=== PATIENT | female | born 1990 | race Caucasian/White ===

== ENCOUNTER 2017-06-10 10:14 | Emergency (ER) | payer BC, OTHER ==
[~2017-06-10] VITALS: Ht 162.6 cm; Wt 61.2 kg
[~2017-06-10 10:14] MED LIST: ACHYD1T PO; DOCU100C37 PO; IBP800T PO; IBUP-1780 PO; NITR100C3 PO; OXYC-465 PO; PREN1TAB14 PO
--- NOTE | 2017-06-10 10:44 | ED Psychosocial ---
General Stated Complaint: PSYCH EVAL Source: patient Exam Limitations: no limitations History of Present Illness Date Seen by Provider: Jun 10, 2017 Time Seen by Provider: 10:39 Initial Comments To ER per private vehicle accompanied by her mother with reports of unwanted thoughts. She states this is been going on for about a year. She states that she has 2 children at home and she feels. She occasionally has thoughts of hurting her children or herself from hurting her children though she has never acted on this. She states "I feel like I have to keep everything sharp or harmful locked up". She reports she did post depression after of her 2 year old child. Her marine consultant Dr Michel started her on prozac at that time but she didnt notice any improvement so she stopped it. ABout a week ago things became worse so she restarted some leftover prozac and it seemed to make things far worse as far as the frequency of these thoughts. She states that she has no personal history of mental illness but her father was diagnosed as bipolar and committed suicide about 4 days after starting Prozac many years ago. Timing/Duration: constant, getting worse Severity: moderate Allergies and Home Medications Allergies Coded Allergies: Sulfa (Sulfonamide Antibiotics) (Unverified Allergy, Severe, ANAPHYLACTIC , 10/31/12) Penicillins (Unverified Allergy, Mild, RASH, 10/31/12) Home Medications Docusate Sodium 100 Mg Capsule, 100 MG PO BID Prescribed by: HARLEY HADDAD on 01/19/15 0745 Hydrocodone Bit/Acetaminophen 1 Tab Tablet, 1-2 TAB PO q3HR PRN, (Reported) Ibuprofen 800 Mg Tab, 800 MG PO Q6 PRN, (Reported) Ibuprofen 800 Mg Tablet, 800 MG PO Q6H Prescribed by: HARLEY HADDAD on 01/19/15 0745 Oxycodone HCl/Acetaminophen 1 Each Tablet, 1-2 TAB PO Q4H PRN for PAIN Prescribed by: HARLEY HADDAD on 01/19/15 0745 Vits W-Ca,Fe,Fa(<1MG) 1 Each Tablet, 1 EACH PO DAILY, (Reported) Venlafaxine HCl 37.5 Mg Cap.er.24h, 37.5 MG PO DAILY Prescribed by: FELECIA MATTHEWS on 06/10/17 1663 Patient Home Medication List Home Medication List Reviewed: Yes Constitutional: see HPI EENTM: see HPI Respiratory: no symptoms reported Cardiovascular: no symptoms reported Genitourinary: no symptoms reported Musculoskeletal: no symptoms reported Skin: no symptoms reported Psychiatric/Neurological: See HPI, Anxiety Past [place]-Wkrigx-Znyrhx Hx Patient Social History Recent Foreign Travel: No Contact w/Someone Who Travel: No Immunizations Up To Date Tetanus Booster (TDap): Unknown PED Vaccines UTD: No Reproductive System Hx Reproductive Disorders: No Blood Transfusions Adverse Reaction to a Blood Tr: No Family Medical History Significant Family History: No Pertinent Family Hx Family Medial History: Cardiovascular disease grandparents (maternal and paternal) Diabetes mellitus grandparents (maternal and paternal) FH: lymphoma grandparents (maternal grandmother) FH: ovarian cancer grandparents (maternal grandmother) Physical Exam Vital Signs Vital Signs - First Documented 06/10/17 06/10/17 10:30 15:22 Temp 98.6 Pulse 97 Resp 18 B/P (MAP) 153/96 (115) Pulse Ox 98 O2 Delivery Room Air Capillary Refill : General Appearance: WD/WN, no apparent distress HEENT: PERRL/EOMI, normal ENT inspection Neck: non-tender, full range of motion Respiratory: no respiratory distress, no accessory muscle use Cardiovascular: regular rate, rhythm, no murmur Gastrointestinal: normal bowel sounds, non tender Neurologic/Psychiatric: alert, normal mood/affect, oriented x 3 Appearance/Memory: appropriate appearance, appropriate insight, other (sobbing) Behavior/Eye Contact: cooperative, good eye contact Thoughts/Hallucinations: normal thought pattern, no apparent hallucination Skin: normal color, warm/dry Progress/Results/Core Measures Results/Orders Lab Results Laboratory Tests Test 06/10/17 10:48 06/10/17 10:53 Range/Units Urine Color YELLOW Urine Clarity CLEAR Urine pH 6 5-9 Urine Specific [place] 1.020 1.016-1.022 Urine Protein 1+ H NEGATIVE Urine Glucose (UA) NEGATIVE NEGATIVE Urine Ketones 4+ H NEGATIVE Urine Nitrite NEGATIVE NEGATIVE Urine Bilirubin NEGATIVE NEGATIVE Urine Urobilinogen 1 NORMAL MG/DL Urine Leukocyte Esterase 1+ H NEGATIVE Urine RBC (Auto) NEGATIVE NEGATIVE Urine RBC NONE /HPF Urine WBC 5-10 H /HPF Urine Squamous Epithelial Cells 5-10 /HPF Urine Crystals NONE /LPF Urine Bacteria MODERATE H /HPF Urine Casts NONE /LPF Urine Mucus MODERATE H /LPF Urine Culture Indicated YES Urine Test NEGATIVE NEGATIVE Urine Opiates Screen NEGATIVE NEGATIVE Urine Oxycodone Screen NEGATIVE NEGATIVE Urine Methadone Screen NEGATIVE NEGATIVE Urine Propoxyphene Screen NEGATIVE NEGATIVE Urine Barbiturates Screen NEGATIVE NEGATIVE Ur Tricyclic Antidepressants Screen NEGATIVE NEGATIVE Urine Phencyclidine Screen NEGATIVE NEGATIVE Urine Amphetamines Screen NEGATIVE NEGATIVE Urine Methamphetamines Screen NEGATIVE NEGATIVE Urine Benzodiazepines Screen NEGATIVE NEGATIVE Urine Cocaine Screen NEGATIVE NEGATIVE Urine Cannabinoids Screen NEGATIVE NEGATIVE White Blood Count 8.5 4.3-11.0 10^3/uL Red Blood Count 5.17 4.35-5.85 10^6/uL Hemoglobin 15.5 11.5-16.0 G/DL Hematocrit 45 35-52 % Mean Corpuscular Volume 87 80-99 FL Mean Corpuscular Hemoglobin 30 25-34 PG Mean Corpuscular Hemoglobin Concent 35 32-36 G/DL Red Cell Distribution Width 12.1 10.0-14.5 % Platelet Count 400 130-400 10^3/uL Mean Platelet Volume 8.8 7.4-10.4 FL Neutrophils (%) (Auto) 79 H 42-75 % Lymphocytes (%) (Auto) 15 12-44 % Monocytes (%) (Auto) 6 0-12 % Eosinophils (%) (Auto) 0 0-10 % Basophils (%) (Auto) 0 0-10 % Neutrophils # (Auto) 6.7 1.8-7.8 X 10^3 Lymphocytes # (Auto) 1.3 1.0-4.0 X 10^3 Monocytes # (Auto) 0.5 0.0-1.0 X 10^3 Eosinophils # (Auto) 0.0 0.0-0.3 10^3/uL Basophils # (Auto) 0.0 0.0-0.1 10^3/uL Sodium Level 138 135-145 MMOL/L Potassium Level 3.8 3.6-5.0 MMOL/L Chloride Level 103 98-107 MMOL/L Carbon Dioxide Level 27 21-32 MMOL/L Anion Gap 8 5-14 MMOL/L Blood Urea Nitrogen 16 7-18 MG/DL Creatinine 0.82 0.60-1.30 MG/DL Estimat Glomerular Filtration Rate > 60 BUN/Creatinine Ratio 20 Glucose Level 115 H 70-105 MG/DL Calcium Level 10.2 H 8.5-10.1 MG/DL Total Bilirubin 0.7 0.1-1.0 MG/DL Aspartate Amino Transf (AST/SGOT) 21 5-34 U/L Alanine Aminotransferase (ALT/SGPT) 16 0-55 U/L Alkaline Phosphatase 86 40-136 U/L Total Protein 8.6 H 6.4-8.2 GM/DL Albumin 5.3 H 3.2-4.5 GM/DL Thyroid Stimulating Hormone (TSH) 1.11 0.35-4.94 UIU/ML Free Thyroxine 1.21 0.70-1.48 NG/DL Salicylates Level < 5.0 L 5.0-20.0 MG/DL Acetaminophen Level < 10 L 10-30 UG/ML Serum Alcohol < 10 <10 MG/DL My Orders Orders - FELECIA MATTHEWS APRN Cbc With Automated Diff (06/10/17 10:38) Comprehensive Metabolic Panel (06/10/17 10:38) Alcohol (06/10/17 10:38) Salicylate (06/10/17 10:38) Acetaminophen (06/10/17 10:38) Drug Screen Stat (Urine) (06/10/17 10:38) Saline Lock/Iv-Start (06/10/17 10:38) Thyroid Stimulating Hormone (06/10/17 10:38) Free T4 (Free Thyroxine) (06/10/17 10:38) Ekg Tracing (06/10/17 10:38) Olanzapine Orally Dissolve Tab (Zyprexa (06/10/17 10:45) Ua Culture If Indicated (06/10/17 11:22) Hcg,Qualitative Urine (06/10/17 11:22) Urine Culture (06/10/17 10:48) Ketamine Injection (Ketalar Injection) (06/10/17 12:30) Ns (Ivpb) (Sodium Chloride 0.9%) (06/10/17 12:30) Ketamine Injection (Ketalar Injection) (06/10/17 12:45) Ns (Ivpb) (Sodium C... W/Ketamine Inject (06/10/17 13:00) Medications Given in ED Current Medications Medications Dose Ordered Sig/Pedro Route Start Time Stop Time Status Last Admin Dose Admin Ketamine HCl 100 mg/Sodium Chloride 101 ml @ 0 mls/hr Q0M ONCE IV 06/10/17 13:00 06/10/17 13:01 DC 06/10/17 13:09 45 MLS/HR Olanzapine 5 mg ONCE ONCE PO 06/10/17 10:45 06/10/17 10:46 DC 06/10/17 10:45 5 MG Vital Signs/I&O Vital Sign - Last 12Hours 06/10/17 06/10/17 10:30 15:22 Temp 98.6 98.4 Pulse 97 82 Resp 18 16 B/P (MAP) 153/96 (115) 132/87 Pulse Ox 98 O2 Delivery Room Air Room Air Departure Communication (Admissions) Progress Notes 1109- [facility] in [place] has no female inpatient psychiatric beds. [facility] in [place] has no female inpatient psychiatric beds. 1116- On license of [facility] states that they do have a bed though there are a couple of intakes ahead of her. They will review her chart and accept if she qualifies. 1202- I spoke with Gregg villegas from [facility]. He'll be out here in about an hour and a half to evaluate the patient and help set up a plan. Still waiting to hear back from [facility]. Patient her and mother are at the bedside and all of them would prefer outpatient treatment. Patient states she is nervous about this but as long as she has family members close by she would feel okay. and mother agree to stay with her. They agree that inpatient therapy in [place] or ectopy, they'll would create to much of a logistics issue for the family and would only compound patient's problems. 1228- patient's mother, [id number], are at the bedside. I discussed with them using ketamine infusion as a one time dose for her severe depression and suicidal ideations. Advised them that several articles support the use of this drug at 0.5 mg/kg, a sub-dissociative dose and that the benefits persist for several weeks according to studies to date. Patient has family reports that she is desperate enough she would be willing to try this. 1322- spoke with [facility] admissions. They do not feel she is acute enough to warrant inpatient. They would recommend outpatient treatment first. Ketamine infusion going currently. 1434-Gregg Villegas from [facility] here to screen patient. Family remains at bedside. Ketamine has infused. 1507- Denise has discussed with the patient and family a safety plan. They will set up an intake appointment with [facility] this week and will call nightly welfare checks until then. Mother and [id number] at the bedside agrees to stay with the patient.. I will start her on Effexor for were waiting on her appointment as he feels this to be more of an anxiety issue as well as depression. Impression Impression: Primary Impression: Severe depression Additional Impression: Anxiety Disposition: HOME, SELF-CARE Condition: Stable Departure-Patient Inst. Decision time for Depature: 14:33 Referrals: NO,LOCAL PHYSICIAN (PCP) Primary Care Physician HARLEY MICHEL MD (Family) Primary Care Physician Patient Instructions: Depression, Adult (DC) Add. Discharge Instructions: 1. Return to ER for any concerns 2. Follow-up with [facility] as scheduled 3. Start the new medication 3. Stop Prozac Scripts Venlafaxine HCl (Effexor Xr) 37.5 Mg Cap.er.24h 37.5 MG PO DAILY, #20 CAP Prov: FELECIA MATTHEWS APRN 06/10/17 Work/School Note: Work Release Form Date Seen in the Emergency Department: Jun 10, 2017 Return to Work: Jun 17, 2017 FELECIA MATTHEWS APRN Jun 10, 2017 10:44
[2017-06-10] MEDS ORDERED: OLANZapine 5 MG ODT (ZyPREXA ZYDIS) PO ONE (10:45)
[2017-06-10 11:13] LABS: BASOPHILS % (AUTO) 0 % (0-10); EOSINOPHILS % (AUTO) 0 % (0-10); HEMATOCRIT 45 % (35-52); HEMOGLOBIN 15.5 G/DL (11.5-16.0); LYMPHOCYTES # (AUTO) 1.3 X 10^3 (1.0-4.0); LYMPHOCYTES % (AUTO) 15 % (12-44); MEAN CORPUSCULAR HEMOGLOBIN 30 PG (25-34); MEAN CORPUSCULAR HGB CONC 35 G/DL (32-36); MEAN CORPUSCULAR VOLUME 87 FL (80-99); MEAN PLATELET VOLUME 8.8 FL (7.4-10.4); MONOCYTES # (AUTO) 0.5 X 10^3 (0.0-1.0); MONOCYTES % (AUTO) 6 % (0-12); NEUTROPHILS # (AUTO) 6.7 X 10^3 (1.8-7.8); NEUTROPHILS % (AUTO) 79 % (42-75); PLATELET COUNT 400 10^3/uL (130-400); RED BLOOD COUNT 5.17 10^6/uL (4.35-5.85); RED CELL DISTRIBUTION WIDTH 12.1 % (10.0-14.5); WHITE BLOOD COUNT 8.5 10^3/uL (4.3-11.0)
[2017-06-10 11:21] LABS: AMPHETAMINE SCREEN, URINE NEGATIVE (NEGATIVE); BARBITURATE SCREEN URINE NEGATIVE (NEGATIVE); BENZODIAZEPINES SCREEN URINE NEGATIVE (NEGATIVE); CANNABINOID SCREEN, URINE NEGATIVE (NEGATIVE); COCAINE SCREEN URINE NEGATIVE (NEGATIVE); METHADONE STAT NEGATIVE (NEGATIVE); METHAMPHETAMINE SCREEN URINE S NEGATIVE (NEGATIVE); OPIATE SCREEN URINE NEGATIVE (NEGATIVE); OXYCODONE STAT NEGATIVE (NEGATIVE); PROPOXYPHENE STAT NEGATIVE (NEGATIVE); TRICYCLIC ANTIDEPRESSANTS SCRE NEGATIVE (NEGATIVE)
[2017-06-10 11:33] LABS: ALANINE AMINOTRANSFERASE 16 U/L (0-55); ALBUMIN 5.3 GM/DL (3.2-4.5); ALKALINE PHOSPHATASE 86 U/L (40-136); BILIRUBIN,TOTAL 0.7 MG/DL (0.1-1.0); BUN/CREATININE RATIO 20; CALCIUM 10.2 MG/DL (8.5-10.1); CARBON DIOXIDE 27 MMOL/L (21-32); CHLORIDE 103 MMOL/L (98-107); CREATININE SERUM 0.82 MG/DL (0.60-1.30); GFR ESTIMATED > 60; GLUCOSE 115 MG/DL (70-105); POTASSIUM 3.8 MMOL/L (3.6-5.0); SALICYLATE < 5.0 MG/DL (5.0-20.0); SODIUM 138 MMOL/L (135-145); TOTAL PROTEIN 8.6 GM/DL (6.4-8.2)
[2017-06-10 11:41] LABS: BILIRUBIN,URINE NEGATIVE (NEGATIVE); CLARITY,URINE CLEAR; COLOR,URINE YELLOW; GLUCOSE, URINE (UA) NEGATIVE (NEGATIVE); KETONES,URINE 4+ (NEGATIVE); LEUKOCYTE ESTERASE ,URINE 1+ (NEGATIVE); NITRITE,URINE NEGATIVE (NEGATIVE); PH,URINE 6 (5-9); PROTEIN,URINE 1+ (NEGATIVE); UROBILINOGEN,URINE 1 MG/DL (NORMAL)
[2017-06-10 11:43] LABS: ACETAMINOPHEN < 10 UG/ML (10-30)
[2017-06-10 12:00] LABS: FREE T4 (FREE THYROXINE) 1.21 NG/DL (0.70-1.48)
[2017-06-10 12:09] LABS: BACTERIA,URINE MODERATE /HPF
[2017-06-10] MEDS ORDERED: KETAMINE HCL 100 MG/ML 5 ML VIAL IV ONE ×2 (12:30→12:45)
[2017-06-10] MEDS ORDERED: NS (IVPB) 250 ML IV ONE (12:30)
[2017-06-10] MEDS ORDERED: KETAMINE INJECTION 100 MG in NS (IVPB) 100 ML IV ONE (13:00)
[2017-06-10] MEDS ORDERED: VENL37.52 PO (15:09)
[2017-06-10 15:22] VITALS: BP 132/87
== END 2017-06-10 15:22 | disposition home or self-care (01) ==
LOC: EDUNIT# 10:14 → ER 10:16
DX: F32.9 Major depressive disorder, single episode, unspecified (principal); F41.9 Anxiety disorder, unspecified; Z91.5 Personal history of self-harm; Z88.0 Allergy status to penicillin; Z88.2 Allergy status to sulfonamides; Z82.49 Family history of ischemic heart disease and other diseases of the circulatory system
CPT/HCPCS: 36415; 80053; 80306; 80320; 80329; 81000; 84439; 84443; 84703; 85025; 87088; 93005; 96365

== ENCOUNTER → 2020-04-12 | Outpatient (CLI) | payer OTHER ==
[~2020-04-12] MED LIST changes: -OXYC-465 PO; +OXYC-556 PO; +VENL37.52 PO
== END ==
LOC: LABNPT 06:43
PROVIDERS: ATTEND Internal Medicine
DX: Z20.822 Contact with and (suspected) exposure to COVID-19 (principal)
CPT/HCPCS: 86769; 87635

== ENCOUNTER 2020-08-29 16:22 | Emergency (ER) | payer OTHER ==
[~2020-08-29] VITALS: Ht 162 cm; Wt 63.6 kg
--- NOTE | 2020-08-29 17:46 | ED GU-Female ---
General Chief Complaint: OB < 20 WEEKS Stated Complaint: CRAMPING/SPOTTING/15 WKS PREG Nursing Triage Note: PT STATES SHE IS HAVING INCREASED VAGINAL BLEEDING AND WORSENING CRAMPING. Nursing Sepsis Screen: No Definite Risk Source: patient Exam Limitations: no limitations History of Present Illness Date Seen by Provider: Aug 29, 2020 Time Seen by Provider: 17:25 Initial Comments Here with report of spotting and some vaginal discharge as well as low abdominal cramping. Patient reports being constipated and being 15 weeks . She has initiated MiraLAX as well as milk of magnesia. She seems to have a little bit more cramping after the milk of magnesia. Vaginal spotting is not persistent. Denies vaginal pain or dysuria. She is sexually active without pain during sexual activity. This is her third . She reports being O+ blood type which was verified. Timing/Duration: intermittent, other (Last several days) Severity/Quality: cramping Location: suprapubic Radiation: none Activities at Onset: none Sexual Pix[place] History: less than 2 months ago, single partner Modifying Factors: Improves With Resting Associated Symptoms: abdominal pain; No dysuria, No fever/chills, No lower back pain, No nausea/vomiting, No urinary frequency Allergies and Home Medications Allergies Coded Allergies: Sulfa (Sulfonamide Antibiotics) (Unverified Allergy, Severe, ANAPHYLACTIC, 10/31/12) Penicillins (Unverified Allergy, Mild, RASH, 10/31/12) Home Medications Docusate Sodium 100 Mg Capsule, 100 MG PO BID Prescribed by: HARLEY HADDAD on 01/19/15 0745 Hydrocodone Bit/Acetaminophen 1 Tab Tablet, 1-2 TAB PO q3HR PRN, (Reported) Ibuprofen 800 Mg Tab, 800 MG PO Q6 PRN, (Reported) Ibuprofen 800 Mg Tablet, 800 MG PO Q6H Prescribed by: HARLEY HADDAD on 01/19/15 0745 Oxycodone HCl/Acetaminophen 1 Each Tablet, 1-2 TAB PO Q4H PRN for PAIN Prescribed by: HARLEY HADDAD on 01/19/15 0745 Vits W-Ca,Fe,Fa(<1MG) 1 Each Tablet, 1 EACH PO DAILY, (Reported) Venlafaxine HCl 37.5 Mg Cap.er.24h, 37.5 MG PO DAILY Prescribed by: FELECIA MATTHEWS on 06/10/17 1509 Patient Home Medication List Home Medication List Reviewed: Yes Review of Systems Review of Systems Constitutional: see HPI; No chills, No fever Respiratory: no symptoms reported Cardiovascular: no symptoms reported Gastrointestinal: abdominal pain, constipation; No nausea, No vomiting Genitourinary: no symptoms reported : Yes Musculoskeletal: no symptoms reported Past Jwdiduc-Irsahi-Asakss Hx Past Med/Social Hx: Reviewed Nursing Past Med/Soc Hx Patient Social History Alcohol Use: Denies Use Smoking Status: Never a Smoker Recent Infectious Disease Expo: No Recent Hopitalizations: No Immunizations Up To Date Tetanus Booster (TDap): Unknown PED Vaccines UTD: No Seasonal Allergies Seasonal Allergies: No Past Medical History Surgeries: Yes (vaginal delivery/abd laparoscopy) Respiratory: No Cardiac: No Neurological: No : Yes Reproductive Disorders: No Gastrointestinal: No Musculoskeletal: No Endocrine: No Cancer: No Psychosocial: Yes Depression Integumentary: No Blood Disorders: No Adverse Reaction/Blood Tranf: No Family Medical History Reviewed Nursing Family Hx Cardiovascular disease grandparents (maternal and paternal) Diabetes mellitus grandparents (maternal and paternal) FH: lymphoma grandparents (maternal grandmother) FH: ovarian cancer grandparents (maternal grandmother) No Pertinent Family Hx Physical Exam Vital Signs Vital Signs - First Documented 08/29/20 16:36 Temp 36.6 Pulse 86 Resp 20 B/P (MAP) 130/78 (95) Pulse Ox 100 Capillary Refill : Less Than 3 Seconds Height, Weight, BMI Height: 5'4.00" Weight: 135lbs. oz. 61.563615um; 24.00 BMI Method:Stated General Appearance: WD/WN, no apparent distress Cardiovascular: regular rate, rhythm, no murmur Respiratory: lungs clear, normal breath sounds Gastrointestinal: non tender, soft, other (Gravid uterus below the level of umbilicus) Neurologic/Psychiatric: alert, oriented x 3 Progress/Results/Core Measures Suspected Sepsis Recent Fever Within 48 Hours: No Infection Criteria Present: None New/Unexplained Altered Menta: No Sepsis Screen: No Definite Risk SIRS Temperature: Pulse: 86 Respiratory Rate: 20 Blood Pressure 130 /78 Mean: 95 Results/Orders Lab Results Laboratory Tests Test 08/29/20 16:30 Range/Units Urine Color YELLOW Urine Clarity CLEAR Urine pH 7.0 5-9 Urine Specific [place] 1.010 L 1.016-1.022 Urine Protein NEGATIVE NEGATIVE Urine Glucose (UA) NEGATIVE NEGATIVE Urine Ketones NEGATIVE NEGATIVE Urine Nitrite NEGATIVE NEGATIVE Urine Bilirubin NEGATIVE NEGATIVE Urine Urobilinogen 0.2 < = 1.0 MG/DL Urine Leukocyte Esterase TRACE H NEGATIVE Urine RBC (Auto) 1+ H NEGATIVE Urine RBC 0-2 /HPF Urine WBC 2-5 /HPF Urine Crystals NONE /LPF Urine Bacteria TRACE /HPF Urine Casts NONE /LPF Urine Mucus NEGATIVE /LPF Urine Culture Indicated NO Micro Results Microbiology 08/29/20 Wet Prep - Final, Complete My Orders Orders - LISA KIRK MD Ua Culture If Indicated (08/29/20 17:39) Wet Prep (08/29/20 17:39) Vital Signs/I&O 08/29/20 16:36 Temp 36.6 Pulse 86 Resp 20 B/P (MAP) 130/78 (95) Pulse Ox 100 Capillary Refill : Less Than 3 Seconds Blood Pressure Mean: 95 Progress Note : Progress Note Seen and evaluated. Bedside ultrasound shows positive movement with heart tones of 165 and 15-0/7 by femur length. This is consistent with dates. UA and self-administered wet prep swab ordered. Monitor patient. Departure Impression Primary Impression: Constipation Qualified Codes: K59.00 - Constipation, unspecified Additional Impressions: related bilateral lower abdominal cramping, antepartum Vaginal bleeding affecting early Disposition: 01 HOME, SELF-CARE Condition: Improved Departure-Patient Inst. Decision time for Depature: 17:53 Referrals: HARLEY GUTIÉRREZ MD (PCP/Family) Primary Care Physician Patient Instructions: Constipation, Adult ED, Stomach Pain in Early , Muscle Spasm ED, Bleeding In Early Add. Discharge Instructions: All discharge instructions reviewed with patient and/or family. Voiced unde rstanding. Drink plenty of fluids and eat a high-fiber diet. You may use MiraLAX or generic 1 capful up to twice daily as needed to keep stools soft. You may use milk of magnesia if MiraLAX or generic is not effective. Pelvic rest until cleared by your doctor. Follow-up with your doctor next week for recheck and further evaluation. Return for persistent bleeding greater than 2 pads per hour for more than 2 hours, weakness, breathing problems or other concerns as needed. Copy Copies To 1: HARLEY GUTIÉRREZ MD, TIMOTHY D MD Aug 29, 2020 17:46
[2020-08-29 18:11] LABS: BILIRUBIN,URINE NEGATIVE (NEGATIVE); CLARITY,URINE CLEAR; COLOR,URINE YELLOW; GLUCOSE, URINE (UA) NEGATIVE (NEGATIVE); KETONES,URINE NEGATIVE (NEGATIVE); LEUKOCYTE ESTERASE ,URINE TRACE (NEGATIVE); NITRITE,URINE NEGATIVE (NEGATIVE); PROTEIN,URINE NEGATIVE (NEGATIVE)
[2020-08-29 18:20] LABS: BACTERIA,URINE TRACE /HPF; RBC,URINE 0-2 /HPF
[2020-08-29 18:28] VITALS: BP 130/78
== END 2020-08-29 18:30 | disposition home or self-care (01) ==
LOC: EDUNIT# 16:22 → ER 16:24
DX: O26.892 Other specified pregnancy related conditions, second trimester (principal); R10.32 Left lower quadrant pain; R10.31 Right lower quadrant pain; O20.8 Other hemorrhage in early pregnancy; K59.00 Constipation, unspecified; F32.9 Major depressive disorder, single episode, unspecified; Z3A.15 15 weeks gestation of pregnancy; Z79.899 Other long term (current) drug therapy
CPT/HCPCS: 81000; 87210; 99282

== ENCOUNTER → 2020-08-31 | Outpatient (CLI) | payer OTHER ==
[~2020-08-31] MED LIST changes: +ACET-93 PO; +ALPR0.25 PO; +FERR-84 PO; +IBUP-1773 PO; +LOPE-134 PO; +ONDN4T PO; +OXC5T PO; +PNV1COMB25 PO; +SERT50TA2 PO
--- NOTE | 2020-08-31 15:18 | Diagnostic Imaging Report ---
INDICATION: Vaginal bleeding. TECHNIQUE: Multiple Real-time grayscale images were obtained over the gravid uterus. COMPARISON: None FINDINGS: There is a single live fetus in a cephalic presentation. heart rate was recorded 172 BPM. There is complete placenta previa noted. The cervical length is 4.2 cm. The amniotic fluid volume is normal. Biometrical measurements are as follows: Biparietal 3.26 cm, age 16 weeks 2 days. Head circumference 11.40 cm, age 15 weeks 4 days. Abdominal circumference 9.10 cm, age 15 weeks 3 days. Femur length 1.79 cm, age 15 weeks 3 days. Sonographic estimate age: 15 weeks 5 days. Sonographic estimated date of delivery: 02/17/2021. Estimated Weight: 122 gm (+/- 18 gm). LMP percentile: 33%. heart rate: 172 beats per minute. number: 1 of 1. IMPRESSION: Single live IUP of 15 weeks 5 days gestational age with an estimated date of confinement sonographically of 02/17/2021. Note is made of complete placenta previa. Dictated by: Dictated on workstation # [id number]
== END ==
LOC: RAD 14:15
PROVIDERS: ATTEND Obstetrics & Gynecology
DX: O20.9 Hemorrhage in early pregnancy, unspecified (principal); Z3A.15 15 weeks gestation of pregnancy
CPT/HCPCS: 76805

== ENCOUNTER 2020-09-01 20:24 | Emergency (ER) | payer OTHER ==
[~2020-09-01] VITALS: Ht 162.5 cm; Wt 63.5 kg
[~2020-09-01 20:24] MED LIST changes: -ACET-93 PO; -ALPR0.25 PO; -FERR-84 PO; -IBUP-1773 PO; -LOPE-134 PO; -ONDN4T PO; -OXC5T PO; -PNV1COMB25 PO; -SERT50TA2 PO
[2020-09-01] MEDS ORDERED: SERT50TA2 PO (21:06)
[2020-09-01] MEDS ORDERED: PNV1COMB25 PO (21:06)
[2020-09-01 21:59] LABS: BILIRUBIN,URINE NEGATIVE (NEGATIVE); CLARITY,URINE CLEAR; COLOR,URINE YELLOW; GLUCOSE, URINE (UA) NEGATIVE (NEGATIVE); KETONES,URINE NEGATIVE (NEGATIVE); LEUKOCYTE ESTERASE ,URINE 1+ (NEGATIVE); NITRITE,URINE NEGATIVE (NEGATIVE); PROTEIN,URINE NEGATIVE (NEGATIVE)
[2020-09-01 22:04] LABS: BACTERIA,URINE TRACE /HPF; SQUAMOUS EPITHELIAL CELL,UR 0-2 /HPF; WBC,URINE 0-2 /HPF
[2020-09-01 22:07] LABS: BASOPHILS # (AUTO) 0.1 10^3/uL (0.0-0.1); BASOPHILS % (AUTO) 0 % (0-10); EOSINOPHILS # (AUTO) 0.2 10^3/uL (0.0-0.3); EOSINOPHILS % (AUTO) 1 % (0-10); HEMATOCRIT 34 % (35-52); HEMOGLOBIN 11.7 g/dL (11.5-16.0); LYMPHOCYTES # (AUTO) 1.8 10^3/uL (1.0-4.0); LYMPHOCYTES % (AUTO) 12 % (12-44); MEAN CORPUSCULAR HEMOGLOBIN 31 pg (25-34); MEAN CORPUSCULAR HGB CONC 34 g/dL (32-36); MEAN CORPUSCULAR VOLUME 89 fL (80-99); MEAN PLATELET VOLUME 8.4 fL (9.0-12.2); MONOCYTES # (AUTO) 0.7 10^3/uL (0.0-1.0); MONOCYTES % (AUTO) 5 % (0-12); NEUTROPHILS # (AUTO) 12.1 10^3/uL (1.8-7.8); NEUTROPHILS % (AUTO) 81 % (42-75); PLATELET COUNT 319 10^3/uL (130-400); WHITE BLOOD COUNT 14.8 10^3/uL (4.3-11.0)
[2020-09-01 22:24] LABS: BAND NEUTROPHILS 0 %; BASOPHILS % (MANUAL) 0 %; EOSINOPHILS % (MANUAL) 1 %; LYMPHOCYTES % (MANUAL) 13 %; MONOCYTES % (MANUAL) 5 %; NEUTROPHILS % (MANUAL) 81 %; RBC MORPH NORMAL
[2020-09-01 22:31] LABS: BUN/CREATININE RATIO 12; CALCIUM 9.3 MG/DL (8.5-10.1); CARBON DIOXIDE 25 MMOL/L (21-32); CHLORIDE 104 MMOL/L (98-107); CREATININE SERUM 0.66 MG/DL (0.60-1.30); GFR ESTIMATED > 60; GLUCOSE 98 MG/DL (70-105); POTASSIUM 3.8 MMOL/L (3.6-5.0); SODIUM 136 MMOL/L (135-145)
[2020-09-01] MEDS ORDERED: FERR-84 PO (23:11)
--- NOTE | 2020-09-01 23:12 | ED GU-Female ---
General Chief Complaint: OB < 20 WEEKS Stated Complaint: 15 WKS PREG - ABD PAIN / BLEEDING Nursing Triage Note: vaginal bleeding since last week. seen in e.d. with us. pt reports placenta previa. reports intermittant abdominal cramping, vaginal bleeding with 1-2 pads/hr. states unk lmp, due date 02/19/21 Nursing Sepsis Screen: No Definite Risk Source: patient History of Present Illness Date Seen by Provider: Sep 01, 2020 Time Seen by Provider: 21:40 Initial Comments PT ARRIVES VIA POV FROM HOME PT STATES SHE IS 15 WEEKS, 4 DAYS PT BEGAN SPOTTING OVER 1 1/2 WEEKS AGO, ALONG WITH INTERMITTENT CRAMPING AND SHARP PAINS BLEEDING HAS CONTINUED TO WORSEN AND BECAME MUCH WORSE TODAY, DID PAIN AND CRAMPING--RATES PAIN 7/10 AT WORST PT HAS USED 3-4 LIGHT PADS/PANTI LINERS TODAY PT SAW DR. GUTIÉRREZ 1 1/2 WEEKS AGO, 08/23/20 AND WAS SPOTTING AT THAT TIME. SHE HAS NOT ATTEMPTED TO CONTACT HIM THIS WEEK, [place] IS [place] OF [place]. HAS HAD MILD NAUSEA WHEN THE PAIN IS BAD NO VOMITING NO DIARRHEA NO URINARY SYMPTOMS NO FEVER HAS OCCASIONAL LOWER BACK PAIN WHEN CRAMPING IS BAD PT WAS SEEN HERE 08/29/20 FOR SAME AND DX WITH CONSTIPATION BEDSIDE ULTRASOUND SHOWED GOOD HEART RATE AND SIZE CONSISTENT WITH 15 WEEK GESTATION PT HAD OUTPATIENT ULTRASOUND WHICH SHOWED LIVE INTRA-UTERINE AT 15 WEEKS/5 DAYS GESTATION, FHR 172 AND COMPLETE PLACENTA PREVIA PT IS AB 0 ALL NORMAL DELIVERIES WITHOUT ANY COMPLICATIONS BLOOD TYPE IS O+ Allergies and Home Medications Allergies Coded Allergies: Sulfa (Sulfonamide Antibiotics) (Unverified Allergy, Severe, ANAPHYLACTIC, 10/31/12) Penicillins (Unverified Allergy, Mild, RASH, 10/31/12) Home Medications Ferrous Sulfate 325 Mg Tablet, 325 MG PO DAILY Prescribed by: LATISHA WHITING on 09/01/20 6547 Patient Home Medication List Home Medication List Reviewed: Yes Review of Systems Review of Systems Constitutional: no symptoms reported Respiratory: no symptoms reported Cardiovascular: no symptoms reported Gastrointestinal: see HPI Genitourinary: see HPI : Yes Expected Date of Delivery: Feb 19, 2021 Musculoskeletal: see HPI Skin: no symptoms reported Past Kfjunql-Eknflv-Hknngb Hx Past Med/Social Hx: Reviewed and Corrections made Patient Social History Alcohol Use: Denies Use Drug of Choice: DENIES Smoking Status: Never a Smoker 2nd Hand Smoke Exposure: No Recent Infectious Disease Expo: No Recent Hopitalizations: No Immunizations Up To Date Tetanus Booster (TDap): Unknown PED Vaccines UTD: No Seasonal Allergies Seasonal Allergies: No Past Medical History Surgeries: Yes (vaginal delivery/abd laparoscopy) Abdominal Respiratory: No Cardiac: No Neurological: No : Yes Expected Date of Delivery: Feb 19, 2021 Hx : 3 Hx Para: 2 Hx Total # of Abortions (Sp): 0 Reproductive Disorders: No Genitourinary: No Gastrointestinal: No Musculoskeletal: No Endocrine: No HEENT: No Cancer: No Psychosocial: Yes (ocd) Depression Integumentary: No Blood Disorders: No Adverse Reaction/Blood Tranf: No Family Medical History Cardiovascular disease grandparents (maternal and paternal) Diabetes mellitus grandparents (maternal and paternal) FH: lymphoma grandparents (maternal grandmother) FH: ovarian cancer grandparents (maternal grandmother) No Pertinent Family Hx Physical Exam Vital Signs Vital Signs - First Documented 09/01/20 20:50 Temp 37.5 Pulse 84 Resp 18 B/P (MAP) 129/84 (99) Pulse Ox 98 O2 Delivery Room Air Capillary Refill : Less Than 3 Seconds Height, Weight, BMI Height: 5'4.00" Weight: 135lbs. oz. [id number]; 24.00 BMI Method:Stated General Appearance: WD/WN, no apparent distress Cardiovascular: regular rate, rhythm Respiratory: normal breath sounds Gastrointestinal: soft, tenderness (SUPRAPUBIC AND SLIGHTLY LEFT OF MIDLINE TENDERNESS), other (FUNDUS 2-3 FB'S BELOW UMBILICUS) Pelvic: No tender adnexa; tender uterus, vaginal bleeding, other (MODERATE AMOUNT OF BLOOD EXTERNALLY; MODERATE AMOUNT OF BLOOD IN CANAL, NO CLOTS NOTED; CERVIX IS CLOSED AND NO TISSUE PRESENT. ) Back: no CVA tenderness Extremities: normal inspection, no pedal edema Neurologic/Psychiatric: no motor/sensory deficits, alert, normal mood/affect Skin: normal color, warm/dry Progress/Results/Core Measures Suspected Sepsis Recent Fever Within 48 Hours: No Infection Criteria Present: None New/Unexplained Altered Menta: No Sepsis Screen: No Definite Risk SIRS Temperature: Pulse: 84 Respiratory Rate: 18 Laboratory Tests 09/01/20 22:00: White Blood Count 14.8H Blood Pressure 129 /84 Mean: 99 Laboratory Tests 09/01/20 22:00: Creatinine 0.66, Platelet Count 319 Results/Orders Lab Results Laboratory Tests Test 09/01/20 21:50 09/01/20 22:00 Range/Units Urine Color YELLOW Urine Clarity CLEAR Urine pH 6.0 5-9 Urine Specific [place] 1.015 L 1.016-1.022 Urine Protein NEGATIVE NEGATIVE Urine Glucose (UA) NEGATIVE NEGATIVE Urine Ketones NEGATIVE NEGATIVE Urine Nitrite NEGATIVE NEGATIVE Urine Bilirubin NEGATIVE NEGATIVE Urine Urobilinogen 0.2 < = 1.0 MG/DL Urine Leukocyte Esterase 1+ H NEGATIVE Urine RBC (Auto) 3+ H NEGATIVE Urine RBC 10-25 H /HPF Urine WBC 0-2 /HPF Urine Squamous Epithelial Cells 0-2 /HPF Urine Crystals NONE /LPF Urine Bacteria TRACE /HPF Urine Casts NONE /LPF Urine Mucus NEGATIVE /LPF Urine Culture Indicated NO White Blood Count 14.8 H 4.3-11.0 10^3/uL Red Blood Count 3.83 3.80-5.11 10^6/uL Hemoglobin 11.7 11.5-16.0 g/dL Hematocrit 34 L 35-52 % Mean Corpuscular Volume 89 80-99 fL Mean Corpuscular Hemoglobin 31 25-34 pg Mean Corpuscular Hemoglobin Concent 34 32-36 g/dL Red Cell Distribution Width 11.8 10.0-14.5 % Platelet Count 319 130-400 10^3/uL Mean Platelet Volume 8.4 L 9.0-12.2 fL Immature Granulocyte % (Auto) 1 % Neutrophils (%) (Auto) 81 H 42-75 % Lymphocytes (%) (Auto) 12 12-44 % Monocytes (%) (Auto) 5 0-12 % Eosinophils (%) (Auto) 1 0-10 % Basophils (%) (Auto) 0 0-10 % Neutrophils # (Auto) 12.1 H 1.8-7.8 10^3/uL Lymphocytes # (Auto) 1.8 1.0-4.0 10^3/uL Monocytes # (Auto) 0.7 0.0-1.0 10^3/uL Eosinophils # (Auto) 0.2 0.0-0.3 10^3/uL Basophils # (Auto) 0.1 0.0-0.1 10^3/uL Immature Granulocyte # (Auto) 0.1 0.0-0.1 10^3/uL Neutrophils % (Manual) 81 % Lymphocytes % (Manual) 13 % Monocytes % (Manual) 5 % Eosinophils % (Manual) 1 % Basophils % (Manual) 0 % Band Neutrophils 0 % Blood Morphology Comment NORMAL Sodium Level 136 135-145 MMOL/L Potassium Level 3.8 3.6-5.0 MMOL/L Chloride Level 104 98-107 MMOL/L Carbon Dioxide Level 25 21-32 MMOL/L Anion Gap 7 5-14 MMOL/L Blood Urea Nitrogen 8 7-18 MG/DL Creatinine 0.66 0.60-1.30 MG/DL Estimat Glomerular Filtration Rate > 60 BUN/Creatinine Ratio 12 Glucose Level 98 70-105 MG/DL Calcium Level 9.3 8.5-10.1 MG/DL Human Chorionic Gonadotropin, Quant 88088 H <5 MIU/ML My Orders Orders - LATISHA WHITING DO Ua Culture If Indicated (09/01/20 21:45) Heart Tones (09/01/20 21:45) Basic Metabolic Panel (09/01/20 21:50) Cbc With Automated Diff (09/01/20 21:50) Hcg,Quantitative (09/01/20 21:50) Manual Differential (09/01/20 22:00) Rx-Hydrocodone/Apap 5-325 Mg (Rx-Vicodin (09/01/20 23:15) Medications Given in ED Current Medications Medications Dose Ordered Sig/Pedro Route Start Time Stop Time Status Last Admin Dose Admin Acetaminophen/ Hydrocodone Bitart 1 ea Q4H PRN PO 09/01/20 23:15 09/01/20 23:18 DC 09/01/20 23:13 1 EA Vital Signs/I&O 09/01/20 09/01/20 20:50 23:15 Temp 37.5 37.2 Pulse 84 80 Resp 18 16 B/P (MAP) 129/84 (99) 134/73 (99) Pulse Ox 98 99 O2 Delivery Room Air Room Air Capillary Refill : Less Than 3 Seconds Blood Pressure Mean: 99 Departure Communication (Admissions) 8680--SPOKE WITH DR. HENAO, [facility]. HE ADVISES STRICT BEDREST, AND IRON SUPPLEMENTS. WILL HAVE PT FOLLOW UP WITH DR. GUTIÉRREZ. ALSO OFFERED PT ADMIT AND SHE DECLINES--STATES SHE WILL DO BEDREST AT HOME Impression Primary Impression: Vaginal bleeding in patient at less than 20 weeks gestation Additional Impression: Placenta previa antepartum in second trimester Disposition: HOME, SELF-CARE Condition: Stable Departure-Patient Inst. Decision time for Depature: 23:00 Referrals: MARY HENAO DENNIS G MD (PCP/Family) Primary Care Physician Patient Instructions: Bleeding in Early ED, Placenta Previa Add. Discharge Instructions: COMPLETE, STRICT BEDREST--YOU MAY ONLY GET UP TO USE THE RESTROOM TYLENOL NEEDED FOR PAIN CONTINUE VITAMINS COLACE STOOL SOFTENER DAILY FOLLOW UP WITH DR. GUTIÉRREZ ON SATURDAY FOR FURTHER CARE, YOU MAY FOLLOW UP WITH DR. HENAO IF YOUR SYMPTOMS WORSEN PRIOR TO SATURDAY All discharge instructions reviewed with patient and/or family. Voiced understanding. Scripts Ferrous Sulfate (Iron) 325 Mg Tablet 325 MG PO DAILY, #30 TAB Prov: LATISHA WHITING DO 09/01/20 LATISHA WHITING DO Sep 01, 2020 23:12
[2020-09-01 23:15] VITALS: BP 134/73
== END 2020-09-01 23:18 | disposition home or self-care (01) ==
LOC: EDUNIT# 20:24 → ER 20:27
DX: O46.8X2 Other antepartum hemorrhage, second trimester (principal); Z3A.15 15 weeks gestation of pregnancy
CPT/HCPCS: 36415; 80048; 81000; 84702; 85007; 85027

== ENCOUNTER 2020-09-04 07:44 | Observation (INO) | payer OTHER ==
[2020-09-04] VITALS (16 sets, daily range): BP systolic 112–162; BP diastolic 59–93
[~2020-09-04] VITALS: Ht 162 cm; Wt 63.5 kg
[~2020-09-04 07:44] MED LIST changes: +FERR-84 PO; +PNV1COMB25 PO; +SERT50TA2 PO
[2020-09-04] MEDS ORDERED: TRANEXAMIC ACID 100 MG/ML 10 ML INJECTION IV ONE (08:00)
[2020-09-04 08:17] LABS: BASOPHILS % (AUTO) 0 % (0-10); EOSINOPHILS # (AUTO) 0.1 10^3/uL (0.0-0.3); EOSINOPHILS % (AUTO) 1 % (0-10); HEMATOCRIT 35 % (35-52); HEMOGLOBIN 12.3 g/dL (11.5-16.0); LYMPHOCYTES # (AUTO) 1.7 10^3/uL (1.0-4.0); LYMPHOCYTES % (AUTO) 14 % (12-44); MEAN CORPUSCULAR HEMOGLOBIN 31 pg (25-34); MEAN CORPUSCULAR HGB CONC 35 g/dL (32-36); MEAN CORPUSCULAR VOLUME 87 fL (80-99); MEAN PLATELET VOLUME 8.5 fL (9.0-12.2); MONOCYTES # (AUTO) 0.5 10^3/uL (0.0-1.0); MONOCYTES % (AUTO) 4 % (0-12); NEUTROPHILS % (AUTO) 80 % (42-75); PLATELET COUNT 353 10^3/uL (130-400); WHITE BLOOD COUNT 12.5 10^3/uL (4.3-11.0)
[2020-09-04 08:20] LABS: ALBUMIN 3.6 GM/DL (3.2-4.5); CHLORIDE 105 MMOL/L (98-107); POTASSIUM 3.9 MMOL/L (3.6-5.0); SODIUM 138 MMOL/L (135-145)
[2020-09-04 08:21] LABS: CALCIUM 8.9 MG/DL (8.5-10.1)
[2020-09-04 08:22] LABS: GLUCOSE 87 MG/DL (70-105)
[2020-09-04] MEDS ORDERED: fentaNYL INJ 100 MCG/2 ML AMP IVP STA (08:22)
--- NOTE | 2020-09-04 08:22 | ED GU-Female ---
General Chief Complaint: OB < 20 WEEKS Stated Complaint: 16 WKS PREG - BLEEDING Source: patient Exam Limitations: no limitations History of Present Illness Date Seen by Provider: Sep 04, 2020 Time Seen by Provider: 07:44 Initial Comments Here by EMS with report of incomplete miscarriage. Apparently she has legs protruding from the vagina. She is approximately 16 weeks and has been seen twice this week for concerns for miscarriage. She did have viable on 08/29 and 09/01 but there was concerns on ultrasound for complete placenta previa. She has had some cramping. Noted that she had significant cramping and bleeding this morning and then had the partial miscarriage. They called EMS and she was transported to the emergency department. Timing/Duration: this morning Severity/Quality: moderate, severe Location: vaginal Radiation: none Activities at Onset: none Sexual [place] History: less than 2 months ago, single partner Associated Symptoms: abdominal pain; No fever/chills, No nausea/vomiting Allergies and Home Medications Allergies Coded Allergies: Sulfa (Sulfonamide Antibiotics) (Unverified Allergy, Severe, ANAPHYLACTIC, 10/31/12) Penicillins (Unverified Allergy, Mild, RASH, 10/31/12) Home Medications Acetaminophen 500 Mg Tablet, 1,000 MG PO Q8H Prescribed by: HERMILO MANCILLA on 09/04/20 115 Alprazolam 0.25 Mg Tablet, 0.25 MG PO TID PRN for ANXIETY Prescribed by: HERMILO MANCILLA on 09/04/20 115 Ferrous Sulfate 325 Mg Tablet, 325 MG PO DAILY Prescribed by: LATISHA WHITING on 09/01/20 2311 Ibuprofen 600 Mg Tablet, 600 MG PO Q6H Prescribed by: HERMILO MANCILLA on 09/04/20 115 Loperamide HCl 2 Mg Tablet, 2 MG PO TID PRN for DIARRHEA 2 tabs with first loose stool then take 1 tablet after each loose sttol but no more than 4 tablets /day. Prescribed by: HERMILO MANCILLA on 09/04/20 115 Ondansetron HCl 4 Mg Tab, 4 MG PO TID Prescribed by: HERMILO MANCILLA on 09/04/20 115 Oxycodone Hcl 5 Mg Tab, 5 MG PO Q4H PRN for pain Prescribed by: HERMILO MANCILLA on 09/04/20 115 Patient Home Medication List Home Medication List Reviewed: Yes Review of Systems Review of Systems Constitutional: see HPI; No chills, No fever EENTM: no symptoms reported Respiratory: No cough, No short of breath Cardiovascular: No chest pain, No palpitations Gastrointestinal: abdominal pain; No nausea, No vomiting Genitourinary: see HPI : Yes Musculoskeletal: no symptoms reported All Other Systemes Reviewed Negative Unless Noted: Yes Past Bzwittt-Pxnvim-Neaerl Hx Past Med/Social Hx: Reviewed Nursing Past Med/Soc Hx Patient Social History Alcohol Use: Denies Use Drug of Choice: DENIES Smoking Status: Never a Smoker 2nd Hand Smoke Exposure: No Recent Hopitalizations: No Immunizations Up To Date Tetanus Booster (TDap): Unknown PED Vaccines UTD: No Seasonal Allergies Seasonal Allergies: No Past Medical History Surgeries: Yes (vaginal delivery/abd laparoscopy) Abdominal Respiratory: No Cardiac: No Neurological: No Reproductive Disorders: No Genitourinary: No Gastrointestinal: No Musculoskeletal: No Endocrine: No HEENT: No Cancer: No Psychosocial: Yes (ocd) Depression Integumentary: No Blood Disorders: No Adverse Reaction/Blood Tranf: No Family Medical History Reviewed Nursing Family Hx Cardiovascular disease grandparents (maternal and paternal) Diabetes mellitus grandparents (maternal and paternal) FH: lymphoma grandparents (maternal grandmother) FH: ovarian cancer grandparents (maternal grandmother) No Pertinent Family Hx Physical Exam Vital Signs Vital Signs - First Documented 09/04/20 09:00 Temp 37.2 Pulse 76 Resp 18 B/P (MAP) 119/64 (82) Pulse Ox 96 O2 Delivery Room Air Capillary Refill : Height, Weight, BMI Height: 5'4.00" Weight: 135lbs. oz. 61.121608kw; 24.00 BMI Method:Stated General Appearance: WD/WN, mild distress HEENT: PERRL/EOMI, pharynx normal Neck: full range of motion, supple Cardiovascular: regular rate, rhythm, no murmur Respiratory: lungs clear, normal breath sounds Gastrointestinal: soft Pelvic: vaginal bleeding, other ( lower extremities protruding from vagina with what appears to be products of conception with mild bleeding.) Extremities: normal range of motion, non-tender, normal inspection Neurologic/Psychiatric: alert, oriented x 3 Skin: normal color, warm/dry Progress/Results/Core Measures Suspected Sepsis SIRS Temperature: Pulse: Respiratory Rate: Laboratory Tests 09/04/20 07:53: White Blood Count 12.5H Blood Pressure / Mean: Laboratory Tests 09/04/20 07:53: Creatinine 0.64, Platelet Count 353, Total Bilirubin 0.2 Results/Orders Lab Results Laboratory Tests Test 09/04/20 07:53 Range/Units White Blood Count 12.5 H 4.3-11.0 10^3/uL Red Blood Count 4.02 3.80-5.11 10^6/uL Hemoglobin 12.3 11.5-16.0 g/dL Hematocrit 35 35-52 % Mean Corpuscular Volume 87 80-99 fL Mean Corpuscular Hemoglobin 31 25-34 pg Mean Corpuscular Hemoglobin Concent 35 32-36 g/dL Red Cell Distribution Width 11.8 10.0-14.5 % Platelet Count 353 130-400 10^3/uL Mean Platelet Volume 8.5 L 9.0-12.2 fL Immature Granulocyte % (Auto) 1 % Neutrophils (%) (Auto) 80 H 42-75 % Lymphocytes (%) (Auto) 14 12-44 % Monocytes (%) (Auto) 4 0-12 % Eosinophils (%) (Auto) 1 0-10 % Basophils (%) (Auto) 0 0-10 % Neutrophils # (Auto) 10.0 H 1.8-7.8 10^3/uL Lymphocytes # (Auto) 1.7 1.0-4.0 10^3/uL Monocytes # (Auto) 0.5 0.0-1.0 10^3/uL Eosinophils # (Auto) 0.1 0.0-0.3 10^3/uL Basophils # (Auto) 0.0 0.0-0.1 10^3/uL Immature Granulocyte # (Auto) 0.1 0.0-0.1 10^3/uL Sodium Level 138 135-145 MMOL/L Potassium Level 3.9 3.6-5.0 MMOL/L Chloride Level 105 98-107 MMOL/L Carbon Dioxide Level 22 21-32 MMOL/L Anion Gap 11 5-14 MMOL/L Blood Urea Nitrogen 8 7-18 MG/DL Creatinine 0.64 0.60-1.30 MG/DL Estimat Glomerular Filtration Rate > 60 BUN/Creatinine Ratio 13 Glucose Level 87 70-105 MG/DL Calcium Level 8.9 8.5-10.1 MG/DL Corrected Calcium 9.2 8.5-10.1 MG/DL Total Bilirubin 0.2 0.1-1.0 MG/DL Aspartate Amino Transf (AST/SGOT) 17 5-34 U/L Alanine Aminotransferase (ALT/SGPT) 24 0-55 U/L Alkaline Phosphatase 131 40-136 U/L Total Protein 6.9 6.4-8.2 GM/DL Albumin 3.6 3.2-4.5 GM/DL My Orders Orders - LISA KIRK MD Cbc With Automated Diff (09/04/20 07:57) Comprehensive Metabolic Panel (09/04/20 07:57) Red Cells Leukocytes Reduced (09/04/20 07:57) Tranexamic Acid Injection (Cyklokapron I (09/04/20 08:00) Type And Screen (09/04/20 07:57) Ondansetron Injection (Zofran Injectio (09/04/20 08:30) Fentanyl Inj (Sublimaze Injection) (09/04/20 08:22) Medications Given in ED Current Medications Medications Dose Ordered Sig/Pedro Route Start Time Stop Time Status Last Admin Dose Admin Ondansetron HCl 4 mg ONCE ONCE IVP 09/04/20 08:30 09/04/20 08:31 DC 09/04/20 08:30 4 MG Tranexamic Acid 1,000 mg ONCE ONCE IV 09/04/20 08:00 09/04/20 08:01 DC 09/04/20 08:04 1,000 MG Vital Signs/I&O 09/04/20 09/04/20 09/04/20 09/04/20 09:00 09:15 09:30 09:45 Temp 37.2 37.2 Pulse 76 76 66 74 Resp 18 18 18 18 B/P (MAP) 119/64 (82) 112/59 (76) 119/66 (83) Pulse Ox 96 96 O2 Delivery Room Air Room Air Room Air Room Air 09/04/20 09/04/20 09/04/20 09/04/20 10:00 10:15 10:30 10:45 Pulse 81 67 111 65 Resp 20 20 B/P (MAP) 126/79 (95) 125/68 (87) 156/93 (114) 158/71 (100) Pulse Ox 97 O2 Delivery Room Air Room Air Room Air Room Air 09/04/20 09/04/20 09/04/20 09/04/20 11:00 11:15 11:30 12:00 Temp 36.8 Pulse 78 65 65 68 Resp 20 20 20 20 B/P (MAP) 158/74 (102) 162/82 (108) 153/62 (92) 143/70 (94) O2 Delivery Room Air Room Air Room Air Room Air 09/04/20 09/04/20 09/04/20 09/04/20 12:15 13:30 13:37 14:30 Temp 36.9 36.9 36.9 Pulse 69 66 66 66 Resp 18 18 18 18 B/P (MAP) 125/70 (88) 114/65 (81) 114/65 (81) 114/65 Pulse Ox 98 97 98 98 O2 Delivery Room Air Room Air Room Air Room Air Capillary Refill : Progress Note : Progress Note Seen and evaluated on arrival by EMS. I did make contact with Dr. Mancilla who states that she will come to the emergency department. 0830: Dr. Mancilla in the department. Labs have been ordered. Fentanyl and Zofran ordered for pain and nausea. Monitor patient. 0900: Patient will go to women services floor for continuation of evaluation and care under the direction of Dr. Mancilla. Departure Communication (Admissions) Time/Spoke to Admitting Phy: 08:20 Impression Primary Impression: Incomplete miscarriage Additional Impression: Placenta previa antepartum in second trimester Disposition: ADMITTED INPATIENT Condition: Stable Admissions Decision to Admit Reason: Admit from ER (General) Decision to Admit/Date: Sep 04, 2020 Time/Decision to Admit Time: 08:45 Departure-Patient Inst. Referrals: HARLEY GUTIÉRREZ MD (PCP/Family) Primary Care Physician Scripts Ondansetron HCl (Zofran) 4 Mg Tab 4 MG PO TID, #12 TAB Prov: HERMILO MANCILLA DO 09/04/20 Loperamide HCl (Imodium A-D) 2 Mg Tablet 2 MG PO TID PRN for DIARRHEA MDD 8 mg, #30 TAB 2 tabs with first loose stool then take 1 tablet after each loose sttol but no more than 4 tablets /day. Prov: HERMILO MANCILLA DO 09/04/20 Oxycodone Hcl (OXYIR TABLET) 5 Mg Tab 5 MG PO Q4H PRN for pain, #12 TAB Prov: HERMILO MANCILLA DO 09/04/20 Acetaminophen (Acetaminophen) 500 Mg Tablet 1000 MG PO Q8H for Pain, #60 TAB Prov: HERMILO MANCILLA DO 09/04/20 Ibuprofen (Ibuprofen) 600 Mg Tablet 600 MG PO Q6H for PAIN, #60 TAB 0 Refills Prov: HERMILO MANCILLA DO 09/04/20 Alprazolam (Xanax) 0.25 Mg Tablet 0.25 MG PO TID PRN for ANXIETY, #12 TAB Prov: HERMILO MANCILLA DO 09/04/20 LISA KIRK MD Sep 04, 2020 08:22
[2020-09-04 08:23] LABS: TOTAL PROTEIN 6.9 GM/DL (6.4-8.2)
[2020-09-04 08:24] LABS: BILIRUBIN,TOTAL 0.2 MG/DL (0.1-1.0); CARBON DIOXIDE 22 MMOL/L (21-32)
--- NOTE | 2020-09-04 08:25 | Consultation ---
History of Present Illness History of Present Illness Patient Consulted On(nic/time) 09/04/20 08:21 Date Seen by Provider: Sep 04, 2020 Time Seen by Provider: 08:20 Reason for Visit: delivering fetus History of Present Illness 30 year old at 16 weeks gestation Presented to the emergency room via EMS. She reports waking up this morning and feeling like she had to go to the bathroom. She went to the bathroom she felt parts coming from the vagina so EMS was called. She does not recall membranes rupturing or leakage of fluid. However she has been having bleeding off and on for several weeks. She was seen in the emergency room on the and the . She also had an ultrasound on 08/31 that showed a placenta previa. Fetus was viable at that time. I was called by Dr. Salgado to evaluate the patient. She reports having cramping intermittently and nausea. She has not had any bleeding today. She has had no fever. No previous history of miscarriage. She reports 2 normal pregnancies resulting in vaginal delivery. The most recent was in 2012. care was established with Dr. GUTIÉRREZ who has delivered her previous . She has no history of hypertension, no history of lung disease, no previous surgeries, she does have allergy to sulfa and penicillins. Answered her questions about the cause, which is unknown at this time. She is concerned that starting Zoloft at 12 weeks is a causative factor and we discussed that she did not cause this, nor was there anything she could do to prevent this. Allergies and Home Medications Allergies Coded Allergies: Sulfa (Sulfonamide Antibiotics) (Unverified Allergy, Severe, ANAPHYLACTIC, 10/31/12) Penicillins (Unverified Allergy, Mild, RASH, 10/31/12) Home Medications Ferrous Sulfate 325 Mg Tablet, 325 MG PO DAILY Prescribed by: LATISHA WHITING on 09/01/20 7560 Patient Home Medication List Home Medication List Reviewed: Yes Past Siefjvm-Gsbcpd-Lesljp Hx Patient Social History Drug of Choice: DENIES 2nd Hand Smoke Exposure: No Recent Hopitalizations: No Immunizations Up To Date Tetanus Booster (TDap): Unknown PED Vaccines UTD: No Seasonal Allergies Seasonal Allergies: No Past Medical History Surgeries: Yes (vaginal delivery/abd laparoscopy) Abdominal Respiratory: No Cardiac: No Neurological: No Reproductive Disorders: No Genitourinary: No Gastrointestinal: No Musculoskeletal: No Endocrine: No HEENT: No Cancer: No Psychosocial: Yes (ocd) Depression Integumentary: No Blood Disorders: No Adverse Reaction/Blood Tranf: No Family Medical History Cardiovascular disease grandparents (maternal and paternal) Diabetes mellitus grandparents (maternal and paternal) FH: lymphoma grandparents (maternal grandmother) FH: ovarian cancer grandparents (maternal grandmother) No Pertinent Family Hx Physical Exam-General Problems Physical Exam Vital Signs Capillary Refill : General Appearance: mild distress, other (tearful) Respiratory: chest non-tender, lungs clear Cardiovascular: regular rate, rhythm Genital/Rectal: other ( legs and umbilical cord are visible outside the vagina. There is no bleeding. Membranes are obviously ruptured. No placenta is present. Digital exam not done at this time. Bedside US revealed head to either be in cervix or vagina. ) Assessment/Plan Assessment/Plan Admission Diagnosis/Plan 1. Second trimester incomplete miscarriage 2. possible placenta previa Admit patient for delivery, which is imminent. Cannot deliver en caul as the membranes are obviously ruptured. Given TXA in the ED to prevent hemorrhage, however, she is not currently bleeding, placenta previa is obviously not of concern. Will induce delivery with cytotec and the hemabate for placenta delivery. Admission Status: Observation HERMILO MANCILLA DO Sep 04, 2020 08:25
[2020-09-04 08:26] LABS: ALKALINE PHOSPHATASE 131 U/L (40-136); CREATININE SERUM 0.64 MG/DL (0.60-1.30); GFR ESTIMATED > 60
[2020-09-04 08:27] LABS: BUN/CREATININE RATIO 13
[2020-09-04 08:29] LABS: ALANINE AMINOTRANSFERASE 24 U/L (0-55)
[2020-09-04] MEDS ORDERED: ONDANSETRON 4 MG/2 ML (SDV) Z0FRAN IVP ONE (08:30)
[2020-09-04] MEDS ORDERED: KETOROLAC 30 MG/ML VIAL IVP ONE (09:00)
[2020-09-04] MEDS ORDERED: PROMETHAZINE INJ 25 MG/ML (PHENERGAN) AMP IVP PRN (09:00)
[2020-09-04] MEDS ORDERED: LACTATED RINGERS 1,000 ML IV SCH (09:00)
[2020-09-04] MEDS ORDERED: ONDANSETRON 4 MG/2 ML (SDV) Z0FRAN IVP PRN (09:00)
[2020-09-04] MEDS ORDERED: fentaNYL INJ 100 MCG/2 ML AMP IVP PRN (09:00)
[2020-09-04] MEDS ORDERED: OXYTOCIN (PITOCIN) 10 UNIT/ML VIAL IM ONE (09:00)
[2020-09-04] MEDS ORDERED: LACTATED RINGERS 1,000 ML IV ONE (09:04)
[2020-09-04] MEDS: CARBOPROST (HEMABATE) 250 MCG/ML AMP IM PRN ×2 (10:34→11:02)
[2020-09-04] MEDS ORDERED: CARBOPROST (HEMABATE) 250 MCG/ML AMP IM ONE (10:51)
--- NOTE | 2020-09-04 11:12 | Operative Report ---
Operative Report Date of Procedure/Surgery Sep 04, 2020 Surgeon (s) HERMILO MANCILLA DO Grounds Maintenance Supervisor (s): NA Post-Operative Diagnosis second trimester incomplete miscarriage Procedure Performed vaginal delivery of fetus and placenat Description of Procedure Estimated blood loss (mL): 100 ml clotted blood Specimen(s) collected/removed fetus, placenta Description of the Procedure See history and physical Patient was seen in the ED and the feet and cord were protruding through the vagina She was not bleeding. Membranes were obviously ruptured as the parts were clearly protruding She was given misoprostol 800 mcg x 1. At 10:30 she delivered the fetus intact on the bed. The cord was cut. the tissue is macerated and the fetus appears to be the stated age of 15-16 weeks. At delivery there was a small amount of dark bloody fluid. Oxytocin 10 mg IM and Hemabate 250 mcg IM were given to facilitate delivery of the placenta She had a large BM and some blood clots passed. She had nausea and was given IV zofran. As the placenta had not delivered within 30 minutes, she was given an additional dose of 250 mcg of Hemabate. 1 hour after delivery of the fetus, she felt an urge to have a BM. She passed the entire placenta. There was no residual bleeding. She will be monitored for a time and then discharge if there is no evidence of further bleeding. Findings of the Procedure 15-16 week fetus, delivered vaginally/breech. Macerated but complete Allergies and Home Medications Allergies Coded Allergies: Sulfa (Sulfonamide Antibiotics) (Unverified Allergy, Severe, ANAPHYLACTIC, 10/31/12) Penicillins (Unverified Allergy, Mild, RASH, 10/31/12) Home Medications Ferrous Sulfate 325 Mg Tablet, 325 MG PO DAILY Prescribed by: LATISHA WHITING on 09/01/20 6728 Patient Home Medication List Home Medication List Reviewed: Yes HERMILO MANCILLA DO Sep 04, 2020 11:12
--- NOTE | 2020-09-04 11:18 | Discharge Inst-Women's Service ---
Discharge Inst-Women's Serv Depart Medication/Instructions New, Converted or Re-Newed RX: RX on Chart Instructions vomiting can be treated with zofran/ondansteron Diarrhea can be treated with Immodium These may occur due to the medications that were given Final Diagnosis incomplete miscarriage at 15 weeks Problems Reviewed?: Yes Consults/Follow Up Additional Follow Up: Yes Activity Activity: Activity as Tolerated Driving Instructions: No Driving for 24 Hours NO SMOKING: NO SMOKING Nothing Inside Vagina: No Douching, No [place], No Tampons Diet Discharge Diet: No Restrictions Symptoms to Report to : Swelling Increased, Bleeding Excessive, Pain Increased, Fever Over 101 Degrees F, Vaginal Bleeding Increase (> 1 pad per hour x 2 hours), Vaginal Discharge Foul For Any Problems or Questions: Contact Your Physician HERMILO MANCILLA DO Sep 04, 2020 11:18
[2020-09-04] MEDS ORDERED: ONDN4T PO (11:57)
[2020-09-04] MEDS ORDERED: ALPR0.25 PO (11:57)
[2020-09-04] MEDS ORDERED: LOPE-134 PO (11:57)
[2020-09-04] MEDS ORDERED: OXC5T PO (11:57)
[2020-09-04] MEDS ORDERED: ACET-93 PO (11:57)
[2020-09-04] MEDS ORDERED: IBUP-1773 PO (11:57)
[2020-09-04] MEDS ORDERED: IBUPROFEN 600 MG (MOTRIN) TAB PO SCH (12:00)
[2020-09-04] MEDS ORDERED: ALPRAZolam 0.25 MG (XANAX) TAB PO PRN (12:00)
[2020-09-04] MEDS ORDERED: ACETAMINOPHEN 500 MG TAB (TYLENOL) PO SCH (14:00)
[2020-09-04] MEDS ORDERED: CATHETER FLUSH 10 ML SYR IV SCH (14:00)
[2020-09-04] MEDS ORDERED: DOCUSATE SODIUM 100 MG (COLACE) CAP PO SCH (21:00)
== END 2020-09-04 14:15 | disposition home or self-care (01) ==
LOC: EDUNIT# 07:47 → ER 07:48 → UNDOADMOB 08:45 → LDRP 08:45 → UNDODISOB 14:30
PROVIDERS: ADMIT Obstetrics & Gynecology; ATTEND Obstetrics & Gynecology
DX: O03.4 Incomplete spontaneous abortion without complication (principal); F32.9 Major depressive disorder, single episode, unspecified; Z79.1 Long term (current) use of non-steroidal anti-inflammatories (NSAID); Z79.891 Long term (current) use of opiate analgesic; Z79.899 Other long term (current) drug therapy
CPT/HCPCS: 59812; 80053; 85025; 86850; 86900; 86901; 86920; 88305; 96361; 96372; 96374; 96375 ×2; 99284; G0378; 36415